=== PATIENT | female | born 1980 ===

== ENCOUNTER 2025-08-13 07:00 | Day surgery (SDC) | payer OTHER ==
[2025-08-10 12:49] LABS: URINE APPEARANCE Clear; URINE BILIRRUBIN Negative (NEGATIVE); URINE BLOOD Negative; URINE COLOR Yellow; URINE GLUCOSE Negative (NEGATIVE); URINE KETONE Negative (NEGATIVE); URINE LEUKOCYTE Negative; URINE NITRATE Negative; URINE PROTEIN Trace (NEGATIVE); URINE UROBILINOGEN 0.2 E.U./dl
[2025-08-10 12:51] LABS: URINE BACTERIA 3513.6 uL (0.0-1933); URINE EPITHELIAL CELLS 38.5 uL (0.0-38.8); URINE RBC 9.5 uL (0.0-20.8); URINE WBC 12.9 uL (0.0-23.2)
[2025-08-10 12:53] VITALS: BP 110/77
[2025-08-10 12:56] LABS: URINE CAST 0.29 uL (0.0-1.40)
[2025-08-10 12:59] LABS: BASO % 0.6 % (0.1-1.2); EOS # 0.14 (0.04-0.54); EOS % 2.1 % (0.7-7.0); LYMPH # 1.92 (1.18-3.74); LYMPH % 28.3 % (19.3-53.1); MEAN PLATELET VOLUME 9.10 fl (9.4-12.4); MONO # 0.51 (0.24-0.82); MONO % 7.5 % (4.7-12.5); NEUT # 4.14 (1.56-6.13); NEUT % 60.9 % (34.0-71.1); RED CELL DISTRIBUTION WIDTH 13.5 % (11.6-14.4)
[2025-08-10 13:35] LABS: INR 1.05
[2025-08-10 13:47] LABS: ALT/SGPT 24.0 U/L (12-78); AST/SGOT 14.0 U/L (15-37); BILIRUBIN TOTAL 0.56 mg/dL (0.3-1.2); BUN CREA RATIO 18.0 (7.0-25.0); CREATININE SERUM 0.82 mg/dL (0.55-1.02); GFR 75.05; GLOBULINA 3.2 G/DL (2.4-3.5); GLUCOSE FASTING 85.0 mg/dL (65-100); OSMOLALITY SERUM 283.0 MOSM/KG (275-295)
[~2025-08-13] VITALS: Ht 157.5 cm; Wt 62.1 kg
[~2025-08-13 07:00] MED LIST: PEPCID AC10 MG PO; PROTONIX20 MG PO
[2025-08-13] MEDS ORDERED: POVIDONE-IODINE 118 ML BOTT TOP ONE (08:25)
[2025-08-13] MEDS ORDERED: CHLORHEXIDINE GLUCONATE 120 ML BOTTLE TOP ONE (08:31)
[2025-08-13] MEDS ORDERED: ONDANSETRON HCL 2 MG/ML VIAL IV ONE (09:30)
== END 2025-08-13 15:20 | disposition home or self-care (01) ==
LOC: CIR.AMB 07:00
PROVIDERS: ATTEND Obstetrics & Gynecology
DX: N84.0 Polyp of corpus uteri (principal); N95.0 Postmenopausal bleeding; Z88.6 Allergy status to analgesic agent